=== PATIENT | male | born 1945 | race Caucasian/White ===

== ENCOUNTER 2020-05-24 12:17 | Emergency (ER) | payer MEDICARE, OTHER ==
[2020-05-24] MEDS ORDERED: Aspirin 81 MG Tab.Chew PO ONE (12:31)
[2020-05-24] MEDS: Nitroglycerin 0.4 MG Tab.SL SL ONE ×2 (12:41→13:09)
--- NOTE | 2020-05-24 13:16 | EDM.PDOC ---
ED HPI GENERAL MEDICAL PROBLEM - General Chief Complaint: Chest Pain Stated Complaint: CHEST PAINS Time Seen by Provider: 05/24/20 12:30 Source of Information: Reports: Patient History Limitations: Reports: No Limitations - History of Present Illness INITIAL COMMENTS - FREE TEXT/NARRATIVE: pt arrived with left sided chest pain which has increased over the past few days. He has been very fatiqued. He did have some swelling in his legs over the week end. He had been doing alot of sitting on he dock and deck. He has been very slightly more sob. Onset: Gradual, Other ( The pain has been worse over the last 2 days. ) Duration: Day(s): Location: Reports: Chest, Generalized, Other (pt has been more fatiquwed. ) Associated Symptoms: Reports: Chest Pain, Shortness of Breath, Weakness Left Chest Pain Score (Numeric/FACES): 7 - Related Data Allergies Allergy/AdvReac Type Severity Reaction Status Date / Time No Known Allergies Allergy Verified 05/24/20 12:37 Home Meds: Home Meds Benzonatate 100 mg PO BID PRN 05/24/20 [History] Colchicine 1 tab PO BID PRN 05/24/20 [History] Escitalopram Oxalate [Lexapro] 30 mg PO DAILY 05/24/20 [History] Gabapentin [Neurontin] 200 mg PO BEDTIME 05/24/20 [History] Losartan [Cozaar] 25 mg PO BID 05/24/20 [History] Metoprolol Succinate 25 mg PO DAILY 05/24/20 [History] Omeprazole 20 mg PO DAILY 05/24/20 [History] Prazosin HCl [Prazosin] 4 mg PO BEDTIME 05/24/20 [History] Simvastatin 20 mg PO BEDTIME 05/24/20 [History] guaiFENesin [Guaifenesin] 200 mg PO TID 05/24/20 [History] Past Medical History HEENT History: Reports: Impaired Vision Cardiovascular History: Reports: High Cholesterol, Hypertension Respiratory History: Reports: COPD, Sleep Apnea Other Respiratory History: Cpap Gastrointestinal History: Reports: GERD Musculoskeletal History: Reports: Arthritis Psychiatric History: Reports: Anxiety, Depression, PTSD Oncologic (Cancer) History: Reports: Esophageal - Past Surgical History Head Surgeries/Procedures: Reports: None HEENT Surgical History: Reports: Cataract Surgery, Other (See Below) Other HEENT Surgeries/Procedures: esophageal ca with surgery Cardiovascular Surgical History: Reports: AAA Repair Respiratory Surgical History: Reports: None GI Surgical History: Reports: None Neurological Surgical History: Reports: Spinal Fusion Musculoskeletal Surgical History: Reports: Other (See Below) Other Musculoskeletal Surgeries/Procedures:: wrist Oncologic Surgical History: Reports: None Dermatological Surgical History: Reports: None Social & Family History - Tobacco Use Smoking Status *Q: Former Smoker Used Tobacco, but Quit: Yes Month/Year Tobacco Last Used: 2009 Second Hand Smoke Exposure: No - Caffeine Use Caffeine Use: Reports: Coffee, Soda - Recreational Drug Use Recreational Drug Use: No ED ROS GENERAL - Review of Systems Review Of Systems: See Below Constitutional: Reports: Weakness, Fatigue HEENT: Reports: No Symptoms Respiratory: Reports: Other (mild sob. ) Cardiovascular: Reports: No Symptoms Endocrine: Reports: No Symptoms GI/Abdominal: Reports: No Symptoms : Reports: No Symptoms Musculoskeletal: Reports: Neck Pain, Shoulder Pain Skin: Reports: No Symptoms Neurological: Reports: Weakness ED EXAM, GENERAL - Physical Exam Exam: See Below Free Text/Narrative:: pt arrived with some sharp stabbing chest pain. This is like an electric shock. He has been very slightly more sob. He has been having alot of difficulty with his neck and is going to have some injections in the neck. Exam Limited By: No Limitations General Appearance: Alert, Anxious, Moderate Distress Ears: Normal TMs Nose: Normal Inspection Throat/Mouth: Normal Inspection Head: Atraumatic Neck: Normal Inspection Respiratory/Chest: No Respiratory Distress Cardiovascular: Regular Rate, Rhythm, Bradycardia GI/Abdominal: Soft, Non-Tender (Male) Exam: Deferred Rectal (Males) Exam: Deferred Back Exam: Normal Inspection Extremities: Normal Inspection Neurological: Alert, Oriented, Normal Cognition Course - Vital Signs Last Recorded V/S: Last Vital Signs Temp 36.7 C 05/24/20 12:29 Pulse 55 L 05/24/20 13:18 Resp 20 05/24/20 13:18 BP 202/97 H 05/24/20 16:16 Pulse Ox 92 L 05/24/20 13:18 - Orders/Labs/Meds Labs: Laboratory Tests 05/24/20 05/24/20 05/24/20 Range/Units 12:34 12:34 12:34 WBC 9.6 (4.5-11.0) K/uL RBC 4.68 (4.30-5.90) M/uL Hgb 13.8 (12.0-15.0) g/dL Hct 43.4 (40.0-54.0) % MCV 93 (80-98) fL MCH 30 (27-31) pg MCHC 32 (32-36) % Plt Count 228 (150-400) K/uL Neut % (Auto) 76 H (36-66) % Lymph % (Auto) 12 L (24-44) % Lanier % (Auto) 9 H (2-6) % Eos % (Auto) 3 (2-4) % Baso % (Auto) 0 (0-1) % Sodium 141 (140-148) mmol/L Potassium 4.1 (3.6-5.2) mmol/L Chloride 105 (100-108) mmol/L Carbon Dioxide 27 (21-32) mmol/L Anion Gap 8.7 (5.0-14.0) mmol/L BUN 16 (7-18) mg/dL Creatinine 1.2 (0.8-1.3) mg/dL Est Cr Clr Drug Dosing TNP Estimated GFR (MDRD) 59 L (>60) Glucose 105 (74-106) mg/dL Calcium 8.7 (8.5-10.1) mg/dL Total Bilirubin 0.5 (0.2-1.0) mg/dL AST 15 (15-37) U/L ALT 22 (12-78) U/L Alkaline Phosphatase 177 H (46-116) U/L Troponin I < 0.017 (0.000-0.056) ng/mL NT-Pro-B Natriuret Pep 420 H (5-125) pg/mL Total Protein 7.2 (6.4-8.2) g/dL Albumin 3.5 (3.4-5.0) g/dL Globulin 3.7 H (2.3-3.5) g/dL Albumin/Globulin Ratio 1.0 L (1.2-2.2) 05/24/20 Range/Units 14:48 WBC (4.5-11.0) K/uL RBC (4.30-5.90) M/uL Hgb (12.0-15.0) g/dL Hct (40.0-54.0) % MCV (80-98) fL MCH (27-31) pg MCHC (32-36) % Plt Count (150-400) K/uL Neut % (Auto) (36-66) % Lymph % (Auto) (24-44) % Lanier % (Auto) (2-6) % Eos % (Auto) (2-4) % Baso % (Auto) (0-1) % Sodium (140-148) mmol/L Potassium (3.6-5.2) mmol/L Chloride (100-108) mmol/L Carbon Dioxide (21-32) mmol/L Anion Gap (5.0-14.0) mmol/L BUN (7-18) mg/dL Creatinine (0.8-1.3) mg/dL Est Cr Clr Drug Dosing Estimated GFR (MDRD) (>60) Glucose (74-106) mg/dL Calcium (8.5-10.1) mg/dL Total Bilirubin (0.2-1.0) mg/dL AST (15-37) U/L ALT (12-78) U/L Alkaline Phosphatase (46-116) U/L Troponin I < 0.017 (0.000-0.056) ng/mL NT-Pro-B Natriuret Pep (5-125) pg/mL Total Protein (6.4-8.2) g/dL Albumin (3.4-5.0) g/dL Globulin (2.3-3.5) g/dL Albumin/Globulin Ratio (1.2-2.2) Meds: Medications Discontinued Medications Generic Name Dose Route Start Last Admin Trade Name Freq PRN Reason Stop Dose Admin Aspirin 324 mg 05/24/20 12:31 05/24/20 12:42 Aspirin PO 05/24/20 12:32 324 mg ONETIME ONE Administration Baclofen 10 mg 05/24/20 14:12 05/24/20 14:31 Lioresal PO 05/24/20 14:13 10 mg ONETIME ONE Administration Hydromorphone HCl 0.5 mg 05/24/20 14:11 05/24/20 14:28 Dilaudid IVPUSH 05/24/20 14:12 0.5 mg ONETIME ONE Administration Ketorolac Tromethamine 30 mg 05/24/20 13:18 05/24/20 13:24 Toradol IVPUSH 05/24/20 13:19 30 mg ONETIME ONE Administration Losartan Potassium 12.5 mg 05/24/20 15:35 05/24/20 16:16 Cozaar PO 05/24/20 15:36 12.5 mg DAILY ONE Administration Nitroglycerin 0.4 mg 05/24/20 12:32 05/24/20 13:09 Nitrostat SL 05/24/20 12:33 0.4 mg ONETIME ONE Administration - Re-Assessments/Exams Free Text/Narrative Re-Assessment/Exam: 05/24/20 13:40 pt 05/24/20 15:36 pt had a normal trop on admission. A second trop was obtained 3 hours later and was normal also. Pt has had a elevated bp while he has been in ER, He had a ekg which showed a bundle branch block. His exam is positive for alot of muscle spasm and tenderness over the left anterior chest and post cervical area. The charactwer of the pain seemed nerve like in it was like an electric shock and buring in nsture. It would come in jolts. He was given torodol and dilaudid and he was more comfortable. 05/24/20 15:39 pt was given a extra losarten 12.5 mg. Departure - Departure Time of Disposition: 13:48 Disposition: Home, Self-Care 01 Condition: Fair Clinical Impression: Cervical disc disease, Muscle spasm Instructions: Muscle Cramps and Spasms, [id number], Degenerative Disk Disease Referrals: PCP,None [Primary Care Provider] - Forms: ED Department Discharge Care Plan Goals: [facility] that he needs for relief of his pain. He had 2 normal tropons while in er. The nature of the chest pain seemed like nerve pain with secondary spasm. baclofen 10 mg bid, norco 5/325 q6h prn # 10 for the severe pain, moist warm packs to the area followed by a cool pack, [facility] days. Sepsis Event Note (ED) - Evaluation Sepsis Screening Result: No Definite Risk
[2020-05-24] MEDS ORDERED: Ketorolac 30 MG/ML SDV IVPUSH ONE (13:18)
[2020-05-24] MEDS ORDERED: HYDROmorphone 0.5 MG/0.5 ML Syringe IVPUSH ONE (14:11)
[2020-05-24] MEDS ORDERED: Baclofen 10 MG Tab PO ONE (14:12)
--- NOTE | 2020-05-24 14:17 | CR ---
CHEST: Portable 05/24/2020 CLINICAL HISTORY:SOB COMPARISON:2013 FINDINGS: Heart is mildly enlarged. There is a double density overlying the left ventricle. This appears to be related to previous esophagectomy and gastric pull-up. There are thoracotomy changes in the left lower chest. There are atherosclerotic changes in the aorta. Impression: Postsurgical changes left lower hemithorax from previous esophagectomy and gastric pull-up No acute cardiopulmonary process
[2020-05-24] MEDS ORDERED: Losartan 25 MG Tab PO ONE (15:35)
== END 2020-05-24 16:24 | disposition home or self-care (01) ==
LOC: JP.ED 12:17
DX: M62.838 Other muscle spasm (principal); M50.90 Cervical disc disorder, unspecified, unspecified cervical region; E78.00 Pure hypercholesterolemia, unspecified; I10 Essential (primary) hypertension; J44.9 Chronic obstructive pulmonary disease, unspecified; K21.9 Gastro-esophageal reflux disease without esophagitis; M19.90 Unspecified osteoarthritis, unspecified site; F41.9 Anxiety disorder, unspecified; F32.9 Major depressive disorder, single episode, unspecified; Z79.899 Other long term (current) drug therapy; Z87.891 Personal history of nicotine dependence
CPT/HCPCS: 36415; 71045; 80053; 83880; 84484; 85025; 93005; 96374; 96375; 99285; A9270; J1170; J1885

== ENCOUNTER 2020-10-24 21:43 | Emergency (ER) | payer OTHER ==
[2020-10-24] MEDS ORDERED: Ibuprofen 600 MG Tab PO ONE (22:41)
--- NOTE | 2020-10-24 22:51 | EDM.PDOC ---
ED HPI GENERAL MEDICAL PROBLEM - General Chief Complaint: Lower Extremity Injury/Pain Stated Complaint: SWOLLEN RIGHT LEG Time Seen by Provider: 10/24/20 22:00 Source of Information: Reports: Patient, Family, RN History Limitations: Reports: No Limitations - History of Present Illness INITIAL COMMENTS - FREE TEXT/NARRATIVE: 75-year-old male with a history of gout in the past Purinol recently. Has a history of taking colchicine as well. He notes swelling now and his right lower ankle and foot and some pain on walking. Not been on Cipro for about a year. There was no trauma. He is otherwise generally in good health. Onset: Gradual Duration: Day(s): Location: Reports: Lower Extremity, Right Quality: Reports: Ache Severity: Moderate Improves with: Reports: None Worsens with: Reports: None Context: Reports: Activity Associated Symptoms: Reports: No Other Symptoms - Related Data Allergies Allergy/AdvReac Type Severity Reaction Status Date / Time No Known Allergies Allergy Verified 10/24/20 22:03 Home Meds: Home Meds Colchicine 1 tab PO BID PRN 05/24/20 [History] Escitalopram Oxalate [Lexapro] 30 mg PO DAILY 05/24/20 [History] Gabapentin [Neurontin] 150 mg PO BEDTIME 05/24/20 [History] Losartan [Cozaar] 25 mg PO BID 05/24/20 [History] Metoprolol Succinate 25 mg PO DAILY 05/24/20 [History] Omeprazole 20 mg PO DAILY 05/24/20 [History] Prazosin HCl [Prazosin] 4 mg PO BEDTIME 05/24/20 [History] Simvastatin 20 mg PO BEDTIME 05/24/20 [History] allopurinoL [Zyloprim] 200 mg PO DAILY 10/24/20 [History] Past Medical History HEENT History: Reports: Impaired Vision Cardiovascular History: Reports: High Cholesterol, Hypertension Respiratory History: Reports: COPD, Sleep Apnea Other Respiratory History: Cpap Gastrointestinal History: Reports: GERD Musculoskeletal History: Reports: Arthritis, Back Pain, Chronic, Gout Psychiatric History: Reports: Anxiety, Depression, PTSD Oncologic (Cancer) History: Reports: Esophageal - Past Surgical History Head Surgeries/Procedures: Reports: None HEENT Surgical History: Reports: Cataract Surgery, Other (See Below) Other HEENT Surgeries/Procedures: esophageal ca with surgery Cardiovascular Surgical History: Reports: AAA Repair Respiratory Surgical History: Reports: None GI Surgical History: Reports: None, Other (See Below) Other GI Surgeries/Procedures: esophagectomy Neurological Surgical History: Reports: Spinal Fusion Musculoskeletal Surgical History: Reports: Shoulder Surgery, Other (See Below) Other Musculoskeletal Surgeries/Procedures:: wrist Oncologic Surgical History: Reports: None Dermatological Surgical History: Reports: None Social & Family History - Tobacco Use Tobacco Use Status *Q: Former Tobacco User Years of Tobacco use: 30 Packs/Tins Daily: 0.5 Used Tobacco, but Quit: Yes Month/Year Tobacco Last Used: 08/2008 - Caffeine Use Caffeine Use: Reports: Coffee - Recreational Drug Use Recreational Drug Use: No Review of Systems - Review of Systems Review Of Systems: See Below Constitutional: Reports: No Symptoms Eyes: Reports: No Symptoms Ears: Reports: No Symptoms Nose: Reports: No Symptoms Mouth/Throat: Reports: No Symptoms Respiratory: Reports: No Symptoms Cardiovascular: Reports: No Symptoms GI/Abdominal: Reports: No Symptoms Genitourinary: Reports: No Symptoms Musculoskeletal: Reports: Foot Pain, Joint Pain Skin: Reports: No Symptoms Neurological: Reports: No Symptoms ED EXAM, GENERAL - Physical Exam Exam: See Below Free Text/Narrative:: 75-year-old male who appears alert cooperative lying on gurney in no distress with okay vital signs General exam is unremarkable. Extremities emanation shows him mild increased redness and swelling of the ankle and foot but no calf tenderness. Dorsalis pedis is full. Cap refill is normal. No real point tenderness noted. Exam Limited By: No Limitations General Appearance: Alert, WD/WN, No Apparent Distress Peripheral Pulses: 3+: Dorsalis Pedis (L), Dorsalis Pedis (R) Extremities: Normal Inspection, Non-Tender, Normal Capillary Refill, Other Neurological: Alert (Mild erythema and swelling about the ankle and foot is noted), Oriented, Normal Cognition Psychiatric: Normal Affect Skin Exam: Warm, Dry, Intact Lymphatic: No Adenopathy Course - Vital Signs Text/Narrative:: I performed ultrasound myself of the popliteal vein and femoral vein and get good compression with no evidence of DVT Patient is given 600 of Motrin here in the department in the absence of available Indocin and a prescription for Indocin to take with food. He is to follow-up with the [facility] in the next few days. Apparently has had lab work done recently. No further lab or x-ray appears indicated at this juncture and the family agrees Last Recorded V/S: Last Vital Signs Temp 37.1 C 10/24/20 22:23 Pulse 65 10/24/20 22:23 Resp 16 10/24/20 22:23 BP 153/88 H 10/24/20 22:23 Pulse Ox 96 10/24/20 22:23 - Orders/Labs/Meds Meds: Medications Discontinued Medications Generic Name Dose Route Start Last Admin Trade Name Fahad PRN Reason Stop Dose Admin Ibuprofen 600 mg 10/24/20 22:41 Motrin PO 10/24/20 22:42 ONETIME ONE Departure - Departure Time of Disposition: 23:00 Disposition: Home, Self-Care 01 Condition: Good Clinical Impression: Right ankle swelling, Gout attack - Discharge Information Referrals: Amadeo Suazo MD [Primary Care Provider] - Forms: ED Department Discharge Sepsis Event Note (ED) - Evaluation Sepsis Screening Result: No Definite Risk - Focused Exam Vital Signs: Vital Signs Temp Pulse Resp BP Pulse Ox 10/24/20 22:23 37.1 C 65 16 153/88 H 96 10/24/20 22:01 37.1 C 65 16 153/88 H 96
== END 2020-10-24 23:02 | disposition home or self-care (01) ==
LOC: JP.ED 21:43
DX: M10.9 Gout, unspecified (principal); I10 Essential (primary) hypertension; E78.00 Pure hypercholesterolemia, unspecified; J44.9 Chronic obstructive pulmonary disease, unspecified; K21.9 Gastro-esophageal reflux disease without esophagitis; F41.9 Anxiety disorder, unspecified; F32.9 Major depressive disorder, single episode, unspecified; Z87.891 Personal history of nicotine dependence; Z79.899 Other long term (current) drug therapy
CPT/HCPCS: 99283; A9270